=== PATIENT | female | born 1940 | race Caucasian/White ===

== ENCOUNTER 2020-08-17 18:06 | Emergency (ER) | payer MEDICARE, OTHER ==
[2020-08-17] MEDS ORDERED: Ondansetron 4 MG Tab.DIS PO ONE (19:57)
--- NOTE | 2020-08-17 20:43 | EDM.PDOC ---
ED HPI GENERAL MEDICAL PROBLEM - General Chief Complaint: Respiratory Problem Stated Complaint: SENT BY ELIZABETH/COVID + Time Seen by Provider: 08/17/20 18:38 Source of Information: Reports: Patient, RN Notes Reviewed History Limitations: Reports: No Limitations - History of Present Illness INITIAL COMMENTS - FREE TEXT/NARRATIVE: Patient is a 79-year-old female presenting to the emergency department for evaluation after being diagnosed as Covid positive. She states that last she had some intermittent chills. She is had a slight cough since that time as well. She has had no documented fevers. She is had some intermittent episodes of nausea but no vomiting or diarrhea. She states sometimes she gets a little shortness of breath but denies shortness of breath at this time. She had family that came [facility] and stayed with her and her . Shortly after they returned home, the family tested positive for Covid. She and her had a rapid Covid test done at the [facility] today which was positive. Their doctor told him to come to the emergency department for evaluation due to their age. - Related Data Allergies Allergy/AdvReac Type Severity Reaction Status Date / Time No Known Allergies Allergy Verified 08/17/20 18:30 Home Meds: Home Meds Aspirin [Aspirin EC] 1 tab PO DAILY 08/17/20 [History] Lovastatin 1 tab PO DAILY 08/17/20 [History] Multivit-Min/Iron/Folic/Lutein [Centrum Silver Women Tablet] 1 tab PO DAILY 08/17/20 [History] Past Medical History HEENT History: Reports: Cataract, Impaired Vision, Other (See Below) Other HEENT History: wears glasses Cardiovascular History: Reports: High Cholesterol Genitourinary History: Reports: Renal Calculus, UTI, Recurrent HARP [employer]ER History: Reports: - Infectious Disease History Infectious Disease History: Reports: Chicken Pox, Measles, Mumps - Past Surgical History HEENT Surgical History: Reports: Cataract Surgery GI Surgical History: Reports: Appendectomy Musculoskeletal Surgical History: Reports: Hip Replacement, Knee Replacement Social & Family History - Family History Family Medical History: Noncontributory - Tobacco Use Tobacco Use Status *Q: Never Tobacco User Second Hand Smoke Exposure: No - Caffeine Use Caffeine Use: Reports: Coffee - Recreational Drug Use Recreational Drug Use: No ED ROS GENERAL - Review of Systems Review Of Systems: See Below Constitutional: Reports: Fatigue. Denies: Fever, Chills HEENT: Reports: No Symptoms Respiratory: Reports: Cough. Denies: Shortness of Breath Cardiovascular: Denies: Chest Pain, Dyspnea on Exertion Endocrine: Reports: No Symptoms GI/Abdominal: Reports: Nausea. Denies: Abdominal Pain, Diarrhea, Vomiting : Reports: No Symptoms Musculoskeletal: Reports: No Symptoms Skin: Reports: No Symptoms Neurological: Reports: Headache (Occasional) Psychiatric: Reports: No Symptoms Hematologic/Lymphatic: Reports: No Symptoms Immunologic: Reports: No Symptoms ED EXAM, GENERAL - Physical Exam Exam: See Below General Appearance: Alert, WD/WN, No Apparent Distress Neck: Normal Inspection, Supple, Non-Tender, Full Range of Motion Respiratory/Chest: No Respiratory Distress, Lungs Clear, Normal Breath Sounds, No Accessory Muscle Use, Chest Non-Tender Cardiovascular: Normal Peripheral Pulses, Regular Rate, Rhythm, No Edema, No Gallop, No JVD, No Murmur, No Rub GI/Abdominal: Normal Bowel Sounds, Soft, Non-Tender, No Organomegaly, No Distention, No Abnormal Bruit, No Mass Neurological: Alert, Oriented, CN II-XII Intact, Normal Cognition, Normal Gait, Normal Reflexes, No Motor/Sensory Deficits Psychiatric: Normal Affect, Normal Mood Skin Exam: Warm, Dry, Intact, Normal Color, No Rash Course - Vital Signs Last Recorded V/S: Last Vital Signs Temp 97.8 F 08/17/20 18:23 Pulse 81 08/17/20 18:23 Resp 20 08/17/20 18:23 BP 145/77 H 08/17/20 18:23 Pulse Ox 97 08/17/20 18:23 - Orders/Labs/Meds Orders: Active Orders 24 hr Category Date Time Status EKG Documentation Completion [RC] STAT Care 08/17/20 18:39 Active Chest 1V Frontal [CR] Stat Exams 08/17/20 18:39 Taken Labs: Laboratory Tests 08/17/20 08/17/20 08/17/20 Range/Units 19:14 19:14 19:14 WBC 3.07 L (3.98-10.04) K/mm3 RBC 4.27 (3.98-5.22) M/mm3 Hgb 12.9 (11.2-15.7) gm/dl Hct 39.1 (34.1-44.9) % MCV 91.6 (79.4-94.8) fl MCH 30.2 (25.6-32.2) pg MCHC 33.0 (32.2-35.5) g/dl RDW Std Deviation 45.1 (36.4-46.3) fL Plt Count 150 L (182-369) K/mm3 MPV 10.7 (9.4-12.3) fl Neut % (Auto) 50.2 (34.0-71.1) % Lymph % (Auto) 36.8 (19.3-51.7) % Vilas % (Auto) 10.7 (4.7-12.5) % Eos % (Auto) 2.0 (0.7-5.8) Baso % (Auto) 0.3 (0.1-1.2) % Neut # (Auto) 1.54 L (1.56-6.13) K/mm3 Lymph # (Auto) 1.13 L (1.18-3.74) K/mm3 Vilas # (Auto) 0.33 (0.24-0.36) K/mm3 Eos # (Auto) 0.06 (0.04-0.36) K/mm3 Baso # (Auto) 0.01 (0.01-0.08) K/mm3 D-Dimer, Quantitative (0.19-0.50) mg/L Sodium (136-145) mEq/L Potassium (3.5-5.1) mEq/L Chloride (98-107) mEq/L Carbon Dioxide (21-32) mEq/L Anion Gap (5-15) BUN (7-18) mg/dL Creatinine (0.55-1.02) mg/dL Est Cr Clr Drug Dosing mL/min Estimated GFR (MDRD) (>60) mL/min BUN/Creatinine Ratio (14-18) Glucose (83-115) mg/dL Calcium (8.5-10.1) mg/dL Ferritin 281 H (8-252) ng/ml Total Bilirubin (0.2-1.0) mg/dL AST (15-37) U/L ALT (14-59) U/L Alkaline Phosphatase (46-116) U/L Lactate Dehydrogenase 157 (81-234) U/L Troponin I (0.00-0.056) ng/mL C-Reactive Protein (<1.0) mg/dL NT-Pro-B Natriuret Pep (0-450) pg/mL Total Protein (6.4-8.2) g/dl Albumin (3.4-5.0) g/dl Globulin gm/dL Albumin/Globulin Ratio (1-2) 08/17/20 08/17/20 08/17/20 Range/Units 19:14 19:14 19:14 WBC (3.98-10.04) K/mm3 RBC (3.98-5.22) M/mm3 Hgb (11.2-15.7) gm/dl Hct (34.1-44.9) % MCV (79.4-94.8) fl MCH (25.6-32.2) pg MCHC (32.2-35.5) g/dl RDW Std Deviation (36.4-46.3) fL Plt Count (182-369) K/mm3 MPV (9.4-12.3) fl Neut % (Auto) (34.0-71.1) % Lymph % (Auto) (19.3-51.7) % Vilas % (Auto) (4.7-12.5) % Eos % (Auto) (0.7-5.8) Baso % (Auto) (0.1-1.2) % Neut # (Auto) (1.56-6.13) K/mm3 Lymph # (Auto) (1.18-3.74) K/mm3 Vilas # (Auto) (0.24-0.36) K/mm3 Eos # (Auto) (0.04-0.36) K/mm3 Baso # (Auto) (0.01-0.08) K/mm3 D-Dimer, Quantitative 1.03 H (0.19-0.50) mg/L Sodium 141 (136-145) mEq/L Potassium 4.0 (3.5-5.1) mEq/L Chloride 104 (98-107) mEq/L Carbon Dioxide 28 (21-32) mEq/L Anion Gap 13.0 (5-15) BUN 25 H (7-18) mg/dL Creatinine 1.0 (0.55-1.02) mg/dL Est Cr Clr Drug Dosing 46.77 mL/min Estimated GFR (MDRD) 54 (>60) mL/min BUN/Creatinine Ratio 25.0 H (14-18) Glucose 90 (83-115) mg/dL Calcium 9.1 (8.5-10.1) mg/dL Ferritin (8-252) ng/ml Total Bilirubin 0.3 (0.2-1.0) mg/dL AST 20 (15-37) U/L ALT 26 (14-59) U/L Alkaline Phosphatase 63 (46-116) U/L Lactate Dehydrogenase (81-234) U/L Troponin I < 0.017 (0.00-0.056) ng/mL C-Reactive Protein 0.4 (<1.0) mg/dL NT-Pro-B Natriuret Pep 229 (0-450) pg/mL Total Protein 7.3 (6.4-8.2) g/dl Albumin 3.5 (3.4-5.0) g/dl Globulin 3.8 gm/dL Albumin/Globulin Ratio 0.9 L (1-2) Meds: Medications Discontinued Medications Generic Name Dose Route Start Last Admin Trade Name Freq PRN Reason Stop Dose Admin Ondansetron HCl 4 mg 08/17/20 19:57 08/17/20 20:35 Zofran Odt PO 08/17/20 19:58 4 mg ONETIME ONE Administration - Re-Assessments/Exams Free Text/Narrative Re-Assessment/Exam: 08/17/20 20:46 Hematology was significant for WBC slightly low at 3.07, D-dimer minimally elevated at 1.03, ferritin 281. Patient has no hypoxia or tachycardia, therefore the D-dimer elevation is likely due to Covid as this is consistent with COVID-19 diagnoses. Chest x-ray was negative for any acute abnormalities. EKG showed no acute ischemia. Patient did have some nausea, therefore I gave her Zofran ODT. She states that she has some at home that she can use, so sh does not need a prescription. Discussed return precautions with patient. Recommend that they get a pulse oximeter to have at home and monitor her oxygen saturations. I will send a prescription for Zofran for nausea. Discharge instructions as documented. Departure - Departure Time of Disposition: 21:30 Disposition: Home, Self-Care 01 Condition: Good Clinical Impression: COVID-19 - Discharge Information *PRESCRIPTION DRUG MONITORING PROGRAM REVIEWED*: No *COPY OF PRESCRIPTION DRUG MONITORING REPORT IN PATIENT JAJA: No Instructions: COVID-19 Frequently Asked Questions, COVID-19 Referrals: PCP,Not In Area [Primary Care Provider] - Forms: ED Department Discharge Additional Instructions: You were seen in the emergency department today for evaluation after being diagnosed with COVID-19. Your work-up included blood work, an EKG of your heart, and a chest x-ray. Results of your work-up were found to be overall normal. Some of your inflammatory markers were minimally elevated which would be consistent with a diagnosis of COVID-19. Your chest x-ray was clear. There was no signs of pneumonia. Your oxygen saturations in the ER were also normal. Recommend that you purchase a pulse oximeter to monitor your oxygen saturations at home. These are available at most pharmacies or medical supply stores. If you are maintaining an oxygen saturation below 90%, you should return to the emergency department to be evaluated. If you experience any new or worsening symptoms of concern, please do not hesitate to return for reevaluation. Sepsis Event Note (ED) - Evaluation Sepsis Screening Result: No Definite Risk - Focused Exam Vital Signs: Vital Signs Temp Pulse Resp BP Pulse Ox 08/17/20 18:23 97.8 F 81 20 145/77 H 97 - My Orders Last 24 Hours: My Active Orders 08/17/20 18:39 EKG Documentation Completion [RC] STAT Chest 1V Frontal [CR] Stat - Assessment/Plan Last 24 Hours: My Active Orders 08/17/20 18:39 EKG Documentation Completion [RC] STAT Chest 1V Frontal [CR] Stat
== END 2020-08-17 21:40 | disposition home or self-care (01) ==
LOC: JD.ED 18:06
DX: U07.1 COVID-19 (principal); E78.00 Pure hypercholesterolemia, unspecified; Z79.82 Long term (current) use of aspirin; Z79.899 Other long term (current) drug therapy
CPT/HCPCS: 36415; 71045; 80053; 82728; 83615; 83880; 84484; 85025; 85379; 86140; 93005; 99284; A9270